=== PATIENT | female | born 1955 | race Caucasian/White ===

== ENCOUNTER 2018-12-30 22:28 | Emergency (ER) | payer OTHER ==
[2018-12-30] MEDS ORDERED: SODIUM CHLORIDE 0.9% 1,000 ML IV ONE (23:49)
--- NOTE | 2018-12-30 23:52 | ED Physician Documentation ---
PD HPI GI BLEED - Stated complaint Stated Complaint: RECTAL BLEEDING - Chief complaint Chief Complaint: Abd Pain - History obtained from History obtained from: Patient, Family - History of Present Illness Timing - onset: Today Timing - duration: Minutes Timing - details: Abrupt onset, Now resolved Associated symptoms: BRBPR, Constipation Contributing factors: Stress, Other (chrons). No: Recent antibiotics, Anticoagulated Improved by: BM Similar symptoms before: Diagnosis (chrons) Recently seen: Not recently seen - Additional information Additional information: 63-year-old female with a long-term history of Crohn's disease has been in remission on Stelara and she is now developed some constipation over the past 4 days and she has taken some Dulcolax today and when she did not have a bowel movement she tried to use an enema and when she tried to use the enema she was unable to get it in very far and she had a lot of blood on the paper. Since she is arrived to the emergency department she has been able to have a large bowel movement. She does not feel particularly ill but she does feel that she is dehydrated. Review of Systems Constitutional: reports: Fatigue. denies: Fever, Chills Eyes: denies: Decreased vision Ears: denies: Ear pain Nose: denies: Rhinorrhea / runny nose, Congestion Throat: denies: Sore throat Cardiac: denies: Chest pain / pressure, Palpitations Respiratory: denies: Dyspnea, Cough GI: reports: Constipation, Bloody / black stool. denies: Abdominal Pain, Nausea, Vomiting : denies: Dysuria, Frequency PD PAST MEDICAL HISTORY - Past Medical History Past Medical History: Yes Cardiovascular: Hypertension, High cholesterol GI: GERD, Crohn's disease Other Past Medical History: Graves Disease - Past Surgical History Past Surgical History: Yes Ortho: Rotator cuff repair /[employer]: section HEENT: Cataracts - Present Medications Home Medications: Ambulatory Orders Medication Instructions Recorded Confirmed Atorvastatin [Lipitor] 0 mg 12/30/18 Levothyroxine Sodium [Synthroid] 88 mcg PO 12/30/18 Lisinopril 5 mg PO 12/30/18 Pantoprazole [Protonix] 40 mg PO 12/30/18 12/30/18 Ustekinumab [Stelara] 45 mg SUBQ ONCE 12/30/18 12/30/18 Potassium Chloride 8 meq PO BID #20 tablet.er 12/31/18 - Allergies Allergies/Adverse Reactions: Allergies Allergy/AdvReac Type Severity Reaction Status Date / Time acetaminophen [From Tylenol] Allergy Hives Verified 12/30/18 22:37 - Social History Does the pt smoke?: No Smoking Status: Never smoker Does the pt drink ETOH?: No Does the pt have substance abuse?: No - Immunizations Immunizations are current?: Yes PD ED PE NORMAL - Vitals Vital signs reviewed: Yes (hypertensive mild ) - General General: Alert and oriented X 3, No acute distress, Well developed/nourished - HEENT HEENT: Atraumatic, PERRL, EOMI - Neck Neck: Supple, no meningeal sign - Cardiac Cardiac: RRR, No murmur - Respiratory Respiratory: No respiratory distress, Clear bilaterally - Abdomen Abdomen: Soft, Non tender - Back Back: No CVA TTP, No spinal TTP - Derm Derm: Normal color, Warm and dry, No rash - Extremities Extremities: No deformity, No tenderness to palpate, Normal ROM s pain, No edema, No calf tenderness / cord - Neuro Neuro: Alert and oriented X 3, cake mixer 2-12 intact, No motor deficit, No sensory deficit, Normal speech Eye Opening: Spontaneous Motor: Obeys Commands Verbal: Oriented GCS Score: 15 - Psych Psych: Normal mood, Normal affect Results - Vitals Vitals: Vital Signs - 24 hr 12/30/18 12/31/18 22:33 00:41 Temperature 36.2 C L 36.4 C L Heart Rate 79 80 Respiratory 18 18 Rate Blood Pressure 142/79 H 149/88 H O2 Saturation 95 100 Oxygen O2 Source Room air - Labs Labs: Laboratory Tests 12/30/18 12/30/18 23:55 23:55 WBC 10.9 H RBC 4.62 Hgb 13.5 Hct 43.0 MCV 93.1 MCH 29.2 MCHC 31.4 L RDW 14.6 Plt Count 268 MPV 9.5 Neut # (Auto) 9.2 H Lymph # (Auto) 1.0 L [place] # (Auto) 0.5 Eos # (Auto) 0.1 Baso # (Auto) 0.0 Absolute Nucleated RBC 0.00 Nucleated RBC % 0.0 Sodium 139 Potassium 3.2 L Chloride 102 Carbon Dioxide 24 Anion Gap 13.0 BUN 22 H Creatinine 0.7 Estimated GFR (MDRD) 85 L Glucose 148 H Calcium 9.4 Total Bilirubin 1.0 AST 22 ALT 25 Alkaline Phosphatase 84 Total Protein 7.9 Albumin 3.8 Globulin 4.1 Albumin/Globulin Ratio 0.9 L Lipase 25 Procedures - IVC sono (time) 2300 Bedside IVC sono: IVC measures (cm) (1.2), Dehydration (est 1 liter deficit) PD MEDICAL DECISION MAKING - ED course Complexity details: reviewed results, re-evaluated patient, considered differential, d/w patient, d/w family ED course: 63-year-old female with a history of Crohn's disease has used an enema today and caused some bleeding to the rectum. She has been able to have a bowel movement here in the emergency department and feels some relief. She is found to be dehydrated on interrogation of the inferior vena cava and she is administered saline and her blood counts are checked. Departure - Departure Disposition: 01 Home, Self Care Clinical Impression: Dehydration, Hyponatremia Constipation Qualifiers: Constipation type: unspecified constipation type Qualified Code(s): K59.00 - Constipation, unspecified Instructions: ED Dehydration, ED Constipation, ED Potassium Deficiency Follow-Up: Your, dotor [Other] Prescriptions: Potassium Chloride 8 meq PO BID #20 tablet.er
[2018-12-31 00:06] LABS: BASOPHILS % (AUTO) 0.4 %; EOSINOPHILS # (AUTO) 0.1 10^3/uL (0.0-0.7); EOSINOPHILS % (AUTO) 0.6 %; HGB - HEMOGLOBIN 13.5 g/dL (12.0-16.0); LYMPHOCYTES % (AUTO) 8.9 %; MEAN CORPUSCULAR HEMOGLOBIN 29.2 pg (27.0-31.0); MEAN CORPUSCULAR HGB CONC 31.4 g/dL (32.0-36.0); MEAN CORPUSCULAR VOLUME 93.1 fL (81.0-99.0); MEAN PLATELET VOLUME 9.5 fL (7.9-10.8); MONOCYTES # (AUTO) 0.5 10^3/uL (0.0-1.0); MONOCYTES % (AUTO) 4.9 %; NEUTROPHILS # (AUTO) 9.2 10^3/uL (1.5-6.6); NEUTROPHILS % (AUTO) 84.7 %; PLT - PLATELET COUNT 268 10^3/uL (130-450); RED BLOOD COUNT 4.62 10^6/uL (4.20-5.40); RED CELL DISTRIBUTION WIDTH 14.6 % (12.0-15.0); WHITE BLOOD COUNT 10.9 x10^3/uL (4.8-10.8)
[2018-12-31 00:19] LABS: ALBUMIN 3.8 g/dL (3.2-5.5); ALBUMIN/GLOBULIN RATIO 0.9 (1.0-2.2); CALCIUM 9.4 mg/dL (8.5-10.3); CREATININE 0.7 mg/dL (0.4-1.0); TOTAL PROTEIN 7.9 g/dL (6.7-8.2)
[2018-12-31] MEDS ORDERED: POTASSIUM CHLORIDE 20 MEQ TABLET PO STA (00:27)
[2018-12-31 00:42] VITALS: BP 149/88
== END 2018-12-31 01:34 | disposition home or self-care (01) ==
LOC: ED 22:28
DX: K59.00 Constipation, unspecified (principal); E86.0 Dehydration; E87.1 Hypo-osmolality and hyponatremia; K50.90 Crohn's disease, unspecified, without complications; I10 Essential (primary) hypertension; E78.00 Pure hypercholesterolemia, unspecified; K21.9 Gastro-esophageal reflux disease without esophagitis; E05.00 Thyrotoxicosis with diffuse goiter without thyrotoxic crisis or storm
CPT/HCPCS: 36415; 80053; 83690; 85025; 96360; 99283; 99284; A9270